=== PATIENT | male | born 2005 | race Caucasian/White ===

== ENCOUNTER → 2024-08-07 12:01 | Outpatient (REF) | payer OTHER, SELFPAY | LOC: HWRAD 12:01 | PROVIDERS: ATTENDING PHYSICIAN Internal Medicine Gastroenterology; FAMILY PHYSICIAN Physician Assistant Medical | DX: K51.00 Ulcerative (chronic) pancolitis without complications (principal) | CPT/HCPCS: 71046 ==

== ENCOUNTER → 2024-09-04 06:25 | Day surgery (SDC) | payer OTHER, SELFPAY | LOC: GI 06:25 | PROVIDERS: ATTENDING PHYSICIAN Internal Medicine Gastroenterology | DX: Z12.11 Encounter for screening for malignant neoplasm of colon (principal); K64.8 Other hemorrhoids; K51.40 Inflammatory polyps of colon without complications; K52.89 Other specified noninfective gastroenteritis and colitis; K51.00 Ulcerative (chronic) pancolitis without complications | CPT/HCPCS: 45380; 88305 ==